=== PATIENT | female | born 1995 | race Caucasian/White ===

== ENCOUNTER 2018-11-03 17:14 | Emergency (ER) | payer MEDICAID ==
[2018-11-03 17:58] LABS: #Lymphocytes 1.2 thou/uL (1.20-3.40); #Monocytes 0.6 thou/uL (0.11-0.59); #Neutrophils 8.9 thou/uL (1.40-6.50); %Basophils 0.2 % (0.0-1.0); %Eosinophils 0.3 % (0.0-10.0); %Lymphocytes 11.4 % (21.0-51.0); %Monocytes 5.1 % (0.0-10.0); %Neutrophils 82.9 % (42.0-75.0); Hemoglobin 13.9 g/dL (12.0-16.0); Mean Corpuscular HGB CONC 34.4 g/dL (32.0-36.0); Mean Corpuscular Hemoglobin 29.4 pg (27.0-31.0); Mean Corpuscular Volume 85.6 fL (78.0-98.0); Platelet Count 342 thou/uL (130-400); RBC Distribution Width 11.3 % (11.5-14.5); Red Blood Cell (RBC) Count 4.73 mill/uL (4.20-5.40); White Blood Cell (WBC) Count 10.7 thou/uL (4.8-10.8)
[2018-11-03 18:20] LABS: ALT (SGPT) 9 U/L (8-55); AST (SGOT) 11 U/L (5-34); Albumin 4.2 g/dL (3.5-5.0); Alkaline Phosphatase 56 U/L (40-150); Anion Gap 11 mmol/L (10-20); BUN (Urea Nitrogen) 4 mg/dL (7.0-18.7); Bilirubin, Total 0.3 mg/dL (0.2-1.2); Calc. Creatinine Clearance 0 mL/min (70-130); Calcium 9.7 mg/dL (7.8-10.44); Carbon Dioxide 23 mmol/L (22-29); Chloride 105 mmol/L (98-107); Estimated GFR-MDRD Greater than 90; Globulin 3.9 g/dL (2.4-3.5); Glucose 96 mg/dL (70-105); Potassium 3.9 mmol/L (3.5-5.1); Protein, Total 8.1 g/dL (6.0-8.3); Sodium 135 mmol/L (136-145)
[2018-11-03 19:37] LABS: Bilirubin Negative (Negative); Blood, Urine Negative (Negative); Clarity CLEAR (Clear); Glucose, Urine (Dipstick) Negative (Negative); Leukocyte Negative (Negative); Nitrite Negative (Negative); Protein, Urine (Dipstick) Negative (Neg-Trace); Specific Gravity, Urine 1.007 (1.002-1.036)
== END 2018-11-03 19:56 | disposition home or self-care (01) ==
LOC: ERS 17:14
DX: O99.89 Other specified diseases and conditions complicating pregnancy, childbirth and the puerperium (principal); R55 Syncope and collapse; O99.341 Other mental disorders complicating pregnancy, first trimester; F31.9 Bipolar disorder, unspecified; Z3A.13 13 weeks gestation of pregnancy
CPT/HCPCS: 36415; 80053; 81003; 84702; 85025; 93005

== ENCOUNTER 2018-11-17 00:52 | Emergency (ER) | payer MEDICAID, OTHER ==
[2018-11-17 01:31] LABS: #Basophils 0.1 thou/uL (0.0-0.2); #Eosinphils 0.1 thou/uL (0.0-0.7); #Lymphocytes 2.5 thou/uL (1.20-3.40); #Monocytes 0.6 thou/uL (0.11-0.59); #Neutrophils 5.6 thou/uL (1.40-6.50); %Basophils 1.1 % (0.0-1.0); %Eosinophils 1.4 % (0.0-10.0); %Lymphocytes 27.9 % (21.0-51.0); %Monocytes 7.1 % (0.0-10.0); %Neutrophils 62.6 % (42.0-75.0); Hemoglobin 13.8 g/dL (12.0-16.0); Mean Corpuscular HGB CONC 34.3 g/dL (32.0-36.0); Mean Corpuscular Volume 87.5 fL (78.0-98.0); Mean Platelet Volume 7.8 fL (7.4-10.4); Platelet Count 328 thou/uL (130-400); RBC Distribution Width 11.3 % (11.5-14.5)
[2018-11-17 01:44] LABS: Anion Gap 12 mmol/L (10-20); BUN (Urea Nitrogen) 4 mg/dL (7.0-18.7); Calc. Creatinine Clearance 0 mL/min (70-130); Calcium 9.6 mg/dL (7.8-10.44); Carbon Dioxide 23 mmol/L (22-29); Chloride 106 mmol/L (98-107); Estimated GFR-MDRD Greater than 90; Glucose 93 mg/dL (70-105); Potassium 3.5 mmol/L (3.5-5.1); Sodium 137 mmol/L (136-145)
[2018-11-17 03:44] LABS: Bilirubin Negative (Negative); Blood, Urine Negative (Negative); Clarity CLOUDY (Clear); Glucose, Urine (Dipstick) Negative (Negative); Leukocyte Negative (Negative); Nitrite Negative (Negative); Protein, Urine (Dipstick) Negative (Neg-Trace); Specific Gravity, Urine 1.011 (1.002-1.036)
--- NOTE | 2018-11-17 08:51 | ULT ---
PRELIMINARY REPORT/[facility]/EMERGENTY AFTER-HOURS PROCEDURE US After First Trimester, Transabdominal EXAM DATE/TIME: 11/17/2018 1:24 AM CLINICAL HISTORY: 23 years old, female; Pain; complicated by abdominal or pelvic pain; Lower; Second trimeste r; Gestational age or lmp: 14w4d; ; Patient HX: Pelvic cramping pain, no bleeding at this luke e TECHNIQUE: Real-time transabdominal obstetrical ultrasound of the maternal pelvis and a second or third trimeste r with image documentation. COMPARISON: No relevant prior studies available. FINDINGS: GESTATION: Gestation: Single live intrauterine gestation. Heart rate: heart rate 147 beats per minute. Presentation: position is transverse with head maternal right. Placenta: Placenta is posterior. Images suggest placenta previa. Amniotic fluid: Amniotic fluid volume is subjectively normal. BIOMETRY: Estimated gestational age: biometry measurements are compatible with estimated gestational age of 14 weeks 6 days. MATERNAL: Uterus: Unremarkable. Cervix: Cervix is closed with length measuring 2.9 cm transabdominally. Right adnexa: Right ovary is normal with normal Doppler signal. Left adnexa: 1.7 cm left ovarian cyst/follicle. Left ovary otherwise normal with normal Doppler signa l. IMPRESSION: 1. Single live intrauterine gestation as above. 2. Placenta is posterior. Images suggest placenta previa. Recommend attention to this area on followu p as progresses. Thank you for allowing us to participate in the care of your patient. Dictated and Authenticated by: London Low MD 11/17/2018 2:17 AM Central Time ([place] & [place]) OBSTETRICAL SONOGRAM: 11/17/2018 0125 HOURS HISTORY: Exam performed on an emergency basis. First trimester gestation. Pelvic pain. FINDINGS: I agree with the preliminary report by from [facility]. Single viable intrauterine gestation. Posterior placenta with placenta previa. Please consider sono graphic followup to evaluate for placental regression from the internal os. Good color and spectral Doppler flow within each ovary. POS: [facility]
== END 2018-11-17 04:04 | disposition home or self-care (01) ==
LOC: ERS 00:52
DX: O99.89 Other specified diseases and conditions complicating pregnancy, childbirth and the puerperium (principal); F31.9 Bipolar disorder, unspecified; Z3A.14 14 weeks gestation of pregnancy
CPT/HCPCS: 36415; 76856; 80048; 81003; 84702; 85025; 86850; 86900; 86901; 93976

== ENCOUNTER 2019-01-18 19:38 | Day surgery (SDC) | payer OTHER ==
[2019-01-18 20:13] VITALS: BP 115/64; TEMP 98.7; BMI 22.8
--- NOTE | 2019-01-18 20:36 | PDOC.LDHP ---
Labor and Delivery H&P Chief complaint: contractions HPI: 23 y/o G1 at 23w3d, patient of Dr. Stevens, presents with ?ctx q 10-15 mins. Rates pain 8/10 but able to converse through them. Denies VB, LOF, or decreased FM. Being treated for BV since yesterday. ROS neg for HEENT, cv, pulm, gi, gu, neuro, psych, skin, musculoskeletal or constitutional symptoms other than mentioned above. OB History Details: First Current complications: none Past Medical History: Anxiety, depression Current medications: pre- vitamins Previous surgical history: none Allergies/Adverse Reactions: Allergies Allergy/AdvReac Type Severity Reaction Status Date / Time No Known Drug Allergies Allergy Verified 01/18/19 20:05 Social history: none - Physical Exam Vital signs reviewed and normal: yes General: NAD, resting Lungs: nonlabored breathing Abdomen: gravid Extremeties: no edema FHT: category 1 (145, mod variability, + accels, no decels) [place] contractions every: q 10 mins initially, spaced out to occasional over an hour - OB Labs Blood type: O RH: positive Additional Labs: FFN negative - Assessment 23 y/o G1 at 23w3d with no e/o PTL. status reassuring, NST AGA. Bedside ultrasound performed by myself and there was no hourglassing of membranes, no dilated noted, but not able to accurately measure cervical length. Formal ultrasound ordered to assess placental location and cervical length - still appears to be low-lying or marginal and length appears adequate with all measurements over 2.5cm. - Plan -: D/c home with precautions. Advised to keep all appointments.
--- NOTE | 2019-01-18 21:44 | ULT ---
ULTRASOUND OB LIMITED 01/18/19 HISTORY: Cervical length and position. COMPARISON: Pelvic ultrasound 11/17/18. FINDINGS: Cervix measures 2.9 cm in length. The tip of the placenta is close to the internal os, approximately 1 cm away. Amniotic fluid is adequate. Placenta is anterior. heart rate documented at 140 beats per minute. position is breech. IMPRESSION: Single live intrauterine with heart rate of 140 beats per minute. Cervix measures approxima tely 2.8 cm and the tip of the anterior placenta is within 1 cm of the internal os. POS: [facility]
[2019-01-18 22:01] LABS: FFN Internal QC Analyzer PASS (PASS); FFN Internal QC Cassette PASS (PASS); Fetal Fibronectin Negative (Negative)
== END 2019-01-18 22:15 | disposition home or self-care (01) ==
LOC: L&D/OP 19:38
PROVIDERS: ATTEND Obstetrics & Gynecology
DX: O47.02 False labor before 37 completed weeks of gestation, second trimester (principal); O32.1XX0 Maternal care for breech presentation, not applicable or unspecified; Z3A.23 23 weeks gestation of pregnancy; Z79.899 Other long term (current) drug therapy
CPT/HCPCS: 76815; 82731; 99283

== ENCOUNTER 2019-02-02 16:51 | Day surgery (SDC) | payer OTHER ==
--- NOTE | 2019-02-02 17:28 | PDOC.FPROB ---
FMR OB H&P: HPI - History of Present Illness Chief Complaint: contractions, decreased movement History of Present Illness: 23 yo G1 @ 25.4wks presents to L&D for contractions and decreased movement. Pt states she has been jose j since 10am this morning every ten minutes regularly and endorses 6 movements of baby today and is worried because the baby usually moves more than that. She denies n/v/d/fever/dysuria/VB/ vaginal discharge/LOF. She has not had sex recently. Primary Care Physician: Hilda FMR OB H&P: Current - Care : 1 Due date: 05/14/19 FMR OB H&P: History - Past Medical History PMH: none - OB History OB History: marginal previa prior work-up for PTL, FFN negative and CL 2.8 - Surgical History Sx History: none - Social History Social History: denies smoking, alcohol, drug use - Family History Family History: mom, grandmother, grandfather-HTN FMR OB H&P: Medications - Current Home Medications: Medication Instructions Recorded Confirmed Type Vit 108/Iron/Folic AC 1 tablet PO DAILY 01/18/19 02/02/19 History [ One Tablet] Allergies/Adverse Reactions: Allergies Allergy/AdvReac Type Severity Reaction Status Date / Time No Known Drug Allergies Allergy Verified 02/02/19 17:39 FMR OB H&P: ROS - Review of Systems General: denies: fever/chills, weight/appetite/sleep changes ENT: denies: nasal congestion, rhinorrhea Cardiovascular: denies: chest pain, palpitation, edema Respiratory: denies: cough, congestion, shortness of breath Gastrointestinal: reports: nausea. denies: abdominal pain, vomiting, diarrhea Genitourinary (Female): reports: contractions. denies: incontinence, dysuria, hematuria, polyuria, vaginal discharge, vaginal bleeding, vaginal pressure Musculoskeletal: denies: pain, tenderness Neurologic: denies: numbness, syncope Integumentary: denies: itching, rash FMR OB H&P: Vital Signs - Maternal Vital signs: Selected Entries 02/02/19 17:33 Temperature 98.6 F Pulse Rate 66 Blood Pressure 106/58 L [Semi-Fowlers] Respiratory 18 Rate - Heart Tones Baseline: 140 Variability: moderate Acceleration: present Deceleration: variable [place] contractions every: irritability FMR OB H&P: Physical Exam - Physical Exam General: NAD, awake, alert and oriented HEENT: normocephalic and atraumatic, PERRLA Heart: RRR, normal S1/S2, no murmurs/rubs/gallops, no edema General: CTAB, no respiratory distress, good air movement Abdomen: soft, gravid, non-tender Skin: no rash, good tugor, capillary refill <2 seconds Psychiatric: intact recent and remote memory, good judgement and insight FMR OB H&P: A/P - Problem List (1) contractions Status: Suspected Code(s): O47.9 - FALSE LABOR, UNSPECIFIED (2) Marginal placenta previa Status: Acute Code(s): O44.20 - PARTIAL PLACENTA PREVIA NOS OR WITHOUT HEMOR, UNSP TRIMESTER Discussion: Date/Time: 02/02/19 1728 23 yo G1 presents with contractions and decreased movement. #Possible Pre-term Contractions #Decreased Movement -Low suspicion for labor -Will monitor mom and baby on the NST and order a FFN to evaluate for PTL, and will order a VP3 to assess for a source of infection/cause of pt's uterine irritability; currently not jose j on the monitor, FHTs 140s, moderate variability, accels with variable decels -recent workup for PTL last week, reassuring, with FFN negative and cervical length 2.8cm; of note marginal previa noted -If FFN negative, will dc pt. #Marginal Previa- -seen via US in clinic and during prior work-up -pt aware -precautions given This H&P was discussed with Dr. Wagner who agree with the above documentation and plan. Addendum - Attending - Attending Attestation Date/Time: 02/02/19 3612 I personally evaluated the patient and discussed the management with Dr. Ruggiero. I agree with the History, Examination, Assessment and Plan documented above. FFN negative, no ctx. D/c home.
[2019-02-02 17:39] VITALS: BP 106/58; TEMP 98.6; BMI 22.8
[2019-02-02 18:59] LABS: FFN Internal QC Analyzer PASS (PASS); FFN Internal QC Cassette PASS (PASS); Fetal Fibronectin Negative (Negative)
[2019-02-03] MEDS ORDERED: Prenatal Vitamin 1 TAB PO SCH (09:00)
== END 2019-02-02 19:36 | disposition home or self-care (01) ==
LOC: L&D/OP 16:51
PROVIDERS: ATTEND Obstetrics & Gynecology
DX: O47.02 False labor before 37 completed weeks of gestation, second trimester (principal); O36.8120 Decreased fetal movements, second trimester, not applicable or unspecified; O44.22 Partial placenta previa NOS or without hemorrhage, second trimester; Z3A.25 25 weeks gestation of pregnancy; Z79.899 Other long term (current) drug therapy
CPT/HCPCS: 36415; 82731; 87480; 87510; 87660; 99285

== ENCOUNTER → 2019-02-15 | Day surgery (SDC) | payer OTHER ==
[2019-02-15 21:53] VITALS: BP 102/57; TEMP 98.6; BMI 24.0
--- NOTE | 2019-02-15 22:29 | PDOC.LDHP ---
Labor and Delivery H&P Chief complaint: other (bleeding) HPI: 23 y/o G1 at 27w3d, patient of Dr. Stevens presents with bleeding noted while in the bath tub this evening. When she got out, there was bleeding when she wiped and a small amount on her pantyliner at her arrival. Denies LOF, ctx, or decreased FM. Has had some intermittent low back pain but no dysuria, frequency or urgency. No hx hemorrhoids. ROS neg for HEENT, cv, pulm, gi, gu, neuro, psych, skin, musculoskeletal or constitutional symptoms other than mentioned above. OB History Details: First Current complications: other (marginal previa) Past Medical History: None Current medications: pre- vitamins Previous surgical history: none Allergies/Adverse Reactions: Allergies Allergy/AdvReac Type Severity Reaction Status Date / Time No Known Drug Allergies Allergy Verified 02/15/19 21:49 Social history: none - Physical Exam Vital signs reviewed and normal: yes General: NAD, resting Lungs: nonlabored breathing Abdomen: gravid Extremeties: no edema FHT: category 1 (130s, mod variability, + accels, no decels) [place] contractions every: None - Vaginal Exam cm dilated: 0 (SSE with no blood in vagina) - Assessment 23 y/o G1 at 27w3d with no e/o vaginal bleeding. status reassuring with reactive NST. - Plan -: Will get UA and call if results indicate treatment. D/c home with precautions. Has next appointment with Dr. Stevens on Tuesday.
[2019-02-15 23:08] LABS: Bilirubin Negative (Negative); Blood, Urine Negative (Negative); Clarity CLEAR (Clear); Glucose, Urine (Dipstick) Negative (Negative); Leukocyte Trace (Negative); Nitrite Negative (Negative); Protein, Urine (Dipstick) Negative (Neg-Trace); Urobilinogen 0.2 mg/dL (0.2-1.0); pH, Urine 6.5 (5.0-9.0)
[2019-02-15 23:10] LABS: Bacteria/HPF None Seen HPF (None Seen); Hyaline Casts/LPF 0-3 HYALINE CAST LPF (0-3 Hyaline); RBC/HPF 0-3 HPF (0-3); Squamous Epithelial 0-3 HPF (0-3); WBC/HPF 0-3 HPF (0-3)
[2019-02-15 23:12] LABS: Specific Gravity, Urine 1.004 (1.002-1.036)
== END ==
LOC: L&D/OP 21:27
PROVIDERS: ATTEND Obstetrics & Gynecology
DX: O44.32 Partial placenta previa with hemorrhage, second trimester (principal); Z3A.27 27 weeks gestation of pregnancy; Z79.899 Other long term (current) drug therapy
CPT/HCPCS: 81001; 99283

== ENCOUNTER 2019-03-01 16:28 | Day surgery (SDC) | payer OTHER ==
[2019-03-01 18:14] LABS: Bilirubin Negative (Negative); Blood, Urine Negative (Negative); Clarity CLEAR (Clear); Glucose, Urine (Dipstick) Negative (Negative); Leukocyte Negative (Negative); Nitrite Negative (Negative); Protein, Urine (Dipstick) Negative (Neg-Trace); Specific Gravity, Urine 1.004 (1.002-1.036); Urobilinogen 0.2 mg/dL (0.2-1.0)
[2019-03-01 18:17] LABS: Amnisure Internal Control QC ACCEPTABLE (ACCEPTABLE); Amnisure Test No Membranes Rupture (No Rupture)
[2019-03-01 18:26] VITALS: BMI 23.8
--- NOTE | 2019-03-01 20:30 | ULT ---
ULTRASOUND OBSTETRICAL COMPLETE: DATE: 03/01/2019 HISTORY: female. Evaluate presentation, SANTIAGO, cervical length, and weight FINDINGS: number: rosen lie: Cephalic Maternal cervix: Difficult to visualize and difficult to measure. Probably closed. Plant Reliability Engineer has me asured this as approximately 3 cm, but this is uncertain. Placenta: Anterior. No placenta previa. Distal tip of placenta 3 cm from internal cervical os region. Amniotic fluid volume: SANTIAGO = 16.5cm heart rate: 141 bpm anatomy not evaluated biometry: Biparietal diameter (BPD): 7.2 cm 29 w 0 d Head circumference (HC): 26.7 cm 29 w 1 d Abdominal circumference (AC): 24.9 cm 29 w 1 d Femur length (FL): 5.6 cm 29 w 2 d Average ultrasound age (AUA): 29 w 1 d Estimated date of delivery (TANNA): 05/16/2019 Estimated weight (EFW): 1342 g +/- 199 g IMPRESSION: 1) Live 3rd trimester intrauterine gestation. 2) Estimated gestational age of 29 weeks, 1 days 3) Vertex lie. 4) SANTIAGO 16.5 cm 5) cervix difficult to visualize. Probably closed. Possibly 3 cm in length.
--- NOTE | 2019-03-02 02:26 | SS ---
DATE OF ADMISSION: 03/01/2019 DATE OF DISCHARGE: 03/01/2019 REGULAR PHYSICIAN: Tomás Stevens MD. EVALUATING PHYSICIAN: Seth Ge MD. CHIEF COMPLAINT: Leakage of fluid. HISTORY OF PRESENT ILLNESS: Ms. Telles is a 23-year-old white G1, P0, with an estimated date of confinement of 05/14/2019, who presents complaining of suspected leakage of fluid since 2 p.m. today. She denies contractions or vaginal bleeding. Her care has been with Dr. Stevens and she reports no complications. PAST MEDICAL HISTORY: Anxiety and occasional gastric reflux. PAST SURGICAL HISTORY: None. CURRENT MEDICATIONS: vitamins. ALLERGIES: NO KNOWN ALLERGIES. SOCIAL HISTORY: Denies tobacco, alcohol, or drug use. FAMILY HISTORY: Unremarkable. REVIEW OF SYSTEMS: She denies nausea, vomiting, fever, chills, vaginal bleeding, contractions, or decreased movement. PHYSICAL EXAMINATION: VITAL SIGNS: Stable and she is afebrile. GENERAL: She is in no acute distress. ABDOMEN: Soft, nontender, and gravid. PELVIC: Deferred. heart rate tracing is stable. Initially irritability seen, but with oral hydration, this has gone away. LABORATORY DATA: AmniSure comes back with no evidence of membrane rupture. Urinalysis returns clear with a specific gravity of 1.004 with negative protein, negative glucose, negative ketones, negative nitrites, and negative leukocyte esterase. Due to her history, an ultrasound was ordered. This returned showing vertex fetus consistent with known dates. SANTIAGO is 16.4 cm and the cervical length is 2.9. ASSESSMENT: 1. A 29 and 3/7 week intrauterine . 2. No evidence of ruptured membranes or labor. PLAN: The patient will be dismissed to home. She was given complete precautions. I have notified Dr. Stevens and he agrees with the plan. Job ID: [id number]
== END 2019-03-01 20:40 | disposition home or self-care (01) ==
LOC: L&D/OP 16:28
PROVIDERS: ATTEND Obstetrics & Gynecology
DX: O99.89 Other specified diseases and conditions complicating pregnancy, childbirth and the puerperium (principal); N89.8 Other specified noninflammatory disorders of vagina; K21.9 Gastro-esophageal reflux disease without esophagitis; O99.343 Other mental disorders complicating pregnancy, third trimester; F41.9 Anxiety disorder, unspecified; Z3A.29 29 weeks gestation of pregnancy; Z79.899 Other long term (current) drug therapy
CPT/HCPCS: 76805; 81003; 84112; 99283

== ENCOUNTER 2019-03-26 16:37 | Day surgery (SDC) | payer OTHER ==
[2019-03-26 17:15] VITALS: BP 98/55; TEMP 99.1; BMI 24.0
--- NOTE | 2019-03-26 17:48 | PDOC.LDHP ---
Labor and Delivery H&P Chief complaint: decreased movement HPI: 23 y/o G1 at 33w0d, patient of Dr. Stevens, presents with decreased movement today. Had one episode of spotting that has resolved and occasional cramping. Denies VB, LOF, regular ctx or other concerns. ROS neg for HEENT, cv, pulm, gi, gu, neuro, psych, skin, musculoskeletal or constitutional symptoms other than mentioned above. OB History Details: First Current complications: none Past Medical History: Anxiety Reflux Current medications: none Previous surgical history: none Allergies/Adverse Reactions: Allergies Allergy/AdvReac Type Severity Reaction Status Date / Time No Known Drug Allergies Allergy Mild Verified 03/26/19 17:15 Social history: none - Physical Exam Vital signs reviewed and normal: yes General: NAD, resting Lungs: nonlabored breathing Abdomen: gravid Extremeties: no edema FHT: category 1 (130s, mod variability, + accels, no decels) [place] contractions every: rare - Assessment 23 y/o G1 at 33w0d with reassuring status. Reactive NST. - Plan -: D/c home with precautions. Advised to keep all appointments.
== END 2019-03-26 18:00 | disposition home or self-care (01) ==
LOC: L&D/OP 16:37
PROVIDERS: ATTEND Obstetrics & Gynecology
DX: O36.8130 Decreased fetal movements, third trimester, not applicable or unspecified (principal); O99.89 Other specified diseases and conditions complicating pregnancy, childbirth and the puerperium; R10.9 Unspecified abdominal pain; O99.343 Other mental disorders complicating pregnancy, third trimester; F41.9 Anxiety disorder, unspecified; O99.613 Diseases of the digestive system complicating pregnancy, third trimester; K21.9 Gastro-esophageal reflux disease without esophagitis; Z3A.33 33 weeks gestation of pregnancy; Z79.899 Other long term (current) drug therapy
CPT/HCPCS: 59025; 99282

== ENCOUNTER 2019-04-01 13:44 | Day surgery (SDC) | payer OTHER ==
[2019-04-01 14:14] VITALS: BP 110/58; TEMP 99.2
[2019-04-01 14:15] VITALS: BMI 24.0
--- NOTE | 2019-04-01 14:40 | PDOC.LDHP ---
Labor and Delivery H&P Allergies/Adverse Reactions: Allergies Allergy/AdvReac Type Severity Reaction Status Date / Time No Known Drug Allergies Allergy Mild Verified 03/26/19 17:15 - Plan -: PCP: Hilda HPI: This is a 23 yo at 33.6 wks by presenting for abdominal cramping. She states it has been going on for 1 day and describes it as a constant pressure. She denies anything making it better or worse, states not worse with movement. She denies N/V/D, fevers, chills, burning/blood in the urine. States she has a yellow discharge. She just finished treatment with tinidazole 3 days ago for BV. She states she noted some light vaginal spotting when she wiped yesterday. She affirms movement, denies cxns, denies ROM. Denies ROBLES, visual changes, SOB, or swelling. History: OB hx: G1 PMH: depression/anxiety PSH: neg Meds: PNV All: NKDA Soc Hx: denies smoking, alcohol, drugs Fam Hx: denies downs, congenital defects REVIEW OF SYSTEMS: Gen: no fever, chills, or sweats Neuro: no numbness/tingling, no weakness, denies headache Eyes: no visual changes ENT: no hearing changes, no sore throat, no runny nose Resp: no cough, no SOB, no wheeze Card: denies chest pain, no palpitations GI: no N/V/D, no abdominal pain : no dysuria, no hematuria MSK: no myalgias, no joint pain/stiffness Heme: no easy bruising/bleeding Skin: no rash, no erythema PHYSICAL EXAMINATION: General: NAD, alert and oriented x3 HEENT: PERRLA, EOMI, normal sclera, oropharynx without erythema or exudate Neck: Supple. Full ROM. Heart/Cardiovascular System: RRR, Cap refill < 3 seconds, no rub, no murmur Lungs/Respiratory System: clear to auscultation bilaterally. No increased work of breathing. Room air. Abdomen/Gastro-Intestinal System: no abdominal tenderness, normal bowel sounds, Gravid Extremities: Warm extremities. No cyanosis or edema. Neuro: No gross deficits appreciated. CN 2-12 grossly intact Psychiatry: Awake, Alert and cooperative with exam Skin: No lesions, rashes, or ulcers Musculoskeletal: Full ROM A/P: This is a 23 yo at 33.6 wks by presenting for abdominal cramping # Cramping - just finished tinidazole 3 days ago, she has been treated for BV x3 this - Exam is benign - states cramping is like she has had in the past - provided extensive reassurance and education on signs of labor - discussed lifestyle modifications for treating BV at length including probiotics for women's health - /th/high on ALIVIAE Addendum - Attending - Attending Attestation Date/Time: 04/01/19 1501 I personally evaluated the patient and discussed the management with Dr. Amador I agree with the History, Examination, Assessment and Plan documented above with any addition or exceptions noted below. I spent about 30min reviewing her past visits here and talking with Ms Telles. She has been experiencing cramping on and off for weeks now. It came back yesterday and is described as constant, always present. She does not believe she is having contractions. She has shared she has been on bed rest and that she has been having a recurrent vaginal infection BV and just finished another round of antibiotics Thr. In our discussion Ms Telles shared that she is worried that what she is feeling is not normal. She also is worried that she will miss something that can hurt the baby. Given that she just finished her antibiotics 2-3 days ago I have opted not to retest her today for BV believing that her primary OB will probably retest in the near future for test of cure or , if recurrent- for sensitivities if that is available. Baby is reactive and reassuring. Cervix is closed thick and firm. Pts has not been taking any medication at home to help with her discomforts. I have recommended scheduled tylenol 1gm three times a day for at least a couple days to see if this regimen will work to her satisfaction. I also spoke by phone with her mother, who was very concerned we had not tested her for BV. She also indicated that she was of the belief that I said something to degrade or contradict her daughters doctor. I reassured her that I did not. That I believe is an excellent doctor and that I am confident he has a plan of care in place to deal with this stubborn infection. I explained to her my reasoning for not retesting so close to finishing her antibiotics. I shared the things I explained to her daughter and the reassurance I have attempted to give. I explained to my ability what labor contraction pattern is like including drawing it on the board. I explained labor precautions. I also recommended a probiotic to support vaginal health with >50billion cfu and gave a brand available at the local [facility] hospital. after explaining in detail the encounter and what I shared with her daughter, she expressed understanding and the tone of the conversation became a very positive one. This has been a hard and the level of worry has been very high. I shared the pt is almost 34wks which should be comforting as she is coming to the end of the . The patient has been complying with strict bed rest. I have asked her to see if Dr Stevens, or the provider she sees next week, is comfortable with her returning to a more normal daily routine given her gestational age.
== END 2019-04-01 15:45 | disposition home or self-care (01) ==
LOC: L&D/OP 13:44
PROVIDERS: ATTEND Obstetrics & Gynecology
DX: O26.893 Other specified pregnancy related conditions, third trimester (principal); R10.9 Unspecified abdominal pain; O99.343 Other mental disorders complicating pregnancy, third trimester; F32.9 Major depressive disorder, single episode, unspecified; F41.9 Anxiety disorder, unspecified; Z3A.33 33 weeks gestation of pregnancy
CPT/HCPCS: 99282

== ENCOUNTER 2019-04-27 21:50 | Day surgery (SDC) | payer OTHER ==
[2019-04-27 22:20] VITALS: BP 125/58; TEMP 98.9; BMI 26.0
--- NOTE | 2019-04-27 22:44 | PDOC.LDHP ---
Labor and Delivery H&P Chief complaint: contractions HPI: 23 y/o G1 at 37w4d, patient of Dr. Stevens, presents with ctx q 3-5 mins today. Denies VB, LOF, or decreased FM. ROS neg for HEENT, cv, pulm, gi, gu, neuro, psych, skin, musculoskeletal or constitutional symptoms other than mentioned above. OB History Details: First Current complications: none Past Medical History: Anxiety/Depression Current medications: pre-teresa vitamins Previous surgical history: none Allergies/Adverse Reactions: Allergies Allergy/AdvReac Type Severity Reaction Status Date / Time No Known Drug Allergies Allergy Mild Verified 03/26/19 17:15 Social history: none - Physical Exam Vital signs reviewed and normal: yes General: NAD, resting Lungs: nonlabored breathing Abdomen: gravid Extremeties: no edema FHT: category 1 (135, mod variability, + accels, no decels) [place] contractions every: occasional - Vaginal Exam cm dilated: 0 (0.5cm) Effacement: 0% Station: -3 - Assessment 23 y/o G1 at 37w3d with no e/o active labor. status reassuring with reactive NST. - Plan -: D/c home with precautions. Advised to keep all appointments.
== END 2019-04-27 22:47 | disposition home or self-care (01) ==
LOC: L&D/OP 21:50
PROVIDERS: ATTEND Obstetrics & Gynecology
DX: O47.1 False labor at or after 37 completed weeks of gestation (principal); O99.343 Other mental disorders complicating pregnancy, third trimester; F41.9 Anxiety disorder, unspecified; F32.9 Major depressive disorder, single episode, unspecified; Z3A.37 37 weeks gestation of pregnancy
CPT/HCPCS: 99282

== ENCOUNTER 2019-05-12 19:58 | Day surgery (SDC) | payer OTHER ==
[2019-05-12 20:46] LABS: #Basophils 0.1 thou/uL (0.0-0.2); #Eosinphils 0.1 thou/uL (0.0-0.7); #Neutrophils 9.5 thou/uL (1.40-6.50); %Basophils 0.4 % (0.0-1.0); %Eosinophils 0.6 % (0.0-10.0); %Monocytes 7.4 % (0.0-10.0); %Neutrophils 69.5 % (42.0-75.0); Hemoglobin 10.1 g/dL (12.0-16.0); Mean Corpuscular HGB CONC 31.9 g/dL (32.0-36.0); Mean Corpuscular Hemoglobin 26.1 pg (27.0-31.0); Mean Corpuscular Volume 81.6 fL (78.0-98.0); Mean Platelet Volume 7.8 fL (7.4-10.4); Platelet Count 409 thou/uL (130-400); RBC Distribution Width 12.6 % (11.5-14.5); Red Blood Cell (RBC) Count 3.88 mill/uL (4.20-5.40); White Blood Cell (WBC) Count 13.7 thou/uL (4.8-10.8)
[2019-05-12 20:48] VITALS: BMI 24.5
[2019-05-12 20:55] VITALS: BP 114/71; TEMP 98.5
--- NOTE | 2019-05-12 21:06 | PDOC.FPROB ---
FMR OB H&P: HPI - History of Present Illness Chief Complaint: Fever History of Present Illness: 23 yo @ 39.5 weeks comes in w/ c/c of fever. Says started at 1600. Recorded fever of 100.7. Says she took a tylenol around 7. Reports having nausea and some dizziness. Denies any vomiting. States she hasn't eaten thing since lunch. Denies any cough, nasal congestion. Denies any ear pain. Denies any chest pain or SOB. Denies any urinary symptoms or burning with urination. Denies any vaginal discharge, itching, irritation or bleeding. Denies any abdominal pain. Denies any diarrhea or constipation. Denies any swelling. 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 FMR OB H&P: Medications - Current Home Medications: Medication Instructions Recorded Confirmed Type PNV No.118/Iron Fumarate/FA 1 tablet PO DAILY 03/26/19 05/12/19 History [ 19 Chewable Tablet] Acetaminophen [Tylenol Extra 1,000 mg PO PRN PRN 05/12/19 05/12/19 History Strength] Cephalexin [Keflex] 500 mg PO Q12H #14 cap 05/12/19 Rx L.acidoph,Paracasei, B.lactis 1 each PO DAILY 05/12/19 05/12/19 History [Probiotic] Ondansetron HCl [Zofran] 4 mg PO Q4HR PRN #10 tab 05/12/19 Rx Allergies/Adverse Reactions: Allergies Allergy/AdvReac Type Severity Reaction Status Date / Time No Known Drug Allergies Allergy Mild Verified 05/12/19 20:31 FMR OB H&P: ROS - Review of Systems General: reports: fever/chills, weight/appetite/sleep changes ENT: denies: nasal congestion, rhinorrhea, sinus pain/pressure, ear pain, ringing in ears, sore throat, pain with swallowing Respiratory: denies: cough, congestion, shortness of breath Gastrointestinal: reports: nausea. denies: abdominal pain, vomiting, diarrhea, constipation Genitourinary (Female): denies: incontinence, dysuria, hematuria, vaginal discharge, vaginal pain, vaginal bleeding, contractions Neurologic: reports: headache. denies: weakness Integumentary: denies: itching Psychological: reports: depression, anxiety FMR OB H&P: Vital Signs - Maternal Vital signs: Vital Signs - First Documented Temp Pulse Resp BP Pulse Ox 98.5 F 96 18 114/71 99 05/12/19 20:30 05/12/19 20:30 05/12/19 20:30 05/12/19 20:30 05/12/19 20:30 - Heart Tones Baseline: 135 Variability: moderate Acceleration: present Deceleration: absent Category: category 1 [place] contractions every: Non visualize FMR OB H&P: Physical Exam - Physical Exam General: NAD, awake, alert and oriented HEENT: normocephalic and atraumatic Neck: supple, trachea midline, no LAD Heart: RRR, normal S1/S2, no murmurs/rubs/gallops, pulses present, no edema General: CTAB, no respiratory distress, good air movement, no rales/rhonchi, no wheezing Abdomen: soft, gravid, non-tender, no masses Deviation from normal: No CVA tenderness noted Musculoskeletal: normal gait and station, FROM in all four extremities Neurological: no focal deficit Skin: no rash, capillary refill <2 seconds Psychiatric: good judgement and insight FMR OB H&P: Results - Labs Lab results: Laboratory Results - last 24 hr 05/12/19 20:35 WBC 13.7 H RBC 3.88 L Hgb 10.1 L Hct 31.6 L MCV 81.6 MCH 26.1 L MCHC 31.9 L RDW 12.6 Plt Count 409 H MPV 7.8 Neutrophils % 69.5 Lymphocytes % 22.0 Monocytes % 7.4 Eosinophils % 0.6 Basophils % 0.4 Neutrophils # 9.5 H Lymphocytes # 3.0 Monocytes # 1.0 H Eosinophils # 0.1 Basophils # 0.1 FMR OB H&P: A/P - Problem List (1) Term Status: Acute Code(s): Z34.90 - ENCNTR FOR SUPRVSN OF NORMAL , UNSP, UNSP TRIMESTER (2) Fever Status: Acute Code(s): R50.9 - FEVER, UNSPECIFIED Disposition: CBC shows mild elevation of WBC at 13. Pt has no recorded fever at this time. U/A is dirty catch. Color was turbid and has WBC and +1 bacteria. Will give fluid bolus, zofran and famotidine for nausea pain. Pt has history of GERD. Discussion: Date/Time: 05/12/192102 UTI vs Gastroenteritis -UA shows some signs of possible UTI. Px keflex 500 mg BID. Will f/u with OB on Tuesday. -Also px zofran and advised to increase fluids. Take tylenol prn as needed for fever. Addendum - Attending - Attending Attestation Date/Time: 05/13/19 0425 I personally evaluated the patient and discussed the management with Dr. Cox. I agree with the History, Examination, Assessment and Plan documented above.
[2019-05-12] MEDS ORDERED: Lactated Ringer's 1,000 ML IV SCH (21:15)
[2019-05-12] MEDS ORDERED: Ondansetron PF 4 MG/2 ML Vial IVP SCH (21:15)
[2019-05-12 21:24] LABS: Bilirubin Negative (Negative); Blood, Urine Negative (Negative); Clarity Turbid (Clear); Glucose, Urine (Dipstick) Normal (Negative); Leukocyte 75 Leu/uL (Negative); Nitrite Negative (Negative); Protein, Urine (Dipstick) Negative (Neg-Trace); RBC/HPF 0-3 HPF (0-3); Urobilinogen Normal mg/dL (Less than 2)
[2019-05-12 21:25] LABS: Bacteria/HPF 1+ HPF (None Seen)
[2019-05-12 21:27] LABS: Urine Culture Reflex No No
[2019-05-12] MEDS ORDERED: Famotidine/PF 20 mg/2ml Vial SLOW IVP SCH (22:30)
== END 2019-05-12 22:41 | disposition home or self-care (01) ==
LOC: L&D/OP 19:58
PROVIDERS: ATTEND Obstetrics & Gynecology
DX: O99.89 Other specified diseases and conditions complicating pregnancy, childbirth and the puerperium (principal); R50.9 Fever, unspecified; O99.343 Other mental disorders complicating pregnancy, third trimester; F32.9 Major depressive disorder, single episode, unspecified; F41.9 Anxiety disorder, unspecified; O99.613 Diseases of the digestive system complicating pregnancy, third trimester; K21.9 Gastro-esophageal reflux disease without esophagitis; Z3A.39 39 weeks gestation of pregnancy
CPT/HCPCS: 36415; 81001; 85025; 87086; 96360; 96361; 96375; 99283; J2405; S0028

== ENCOUNTER 2019-05-14 18:00 | Inpatient (IN) | payer OTHER ==
[~2019-05-14 18:00] MED LIST: Bupivacaine/Epinephrine 0.5% 10 ML VIAL ONE; Lidocaine 2% MPF 10 ML AMP (For Epidural Use) ONE
[2019-05-14 18:28] VITALS: BMI 26.4
[2019-05-14] MEDS ORDERED: Zolpidem Tartrate 5 MG TAB PO PRN (19:00)
[2019-05-14] MEDS ORDERED: Lidocaine 1% (PF) 30 ML VIAL SC PRN (19:00)
[2019-05-14] MEDS ORDERED: Misoprostol 200 MCG TAB PR PRN (19:00)
[2019-05-14] MEDS ORDERED: Diphenoxylate HCl/Atropine Tablet PO PRN ×2 (19:00)
[2019-05-14] MEDS ORDERED: Butorphanol Tartrate 1 MG/ML VIAL SLOW IVP PRN (19:00)
[2019-05-14] MEDS ORDERED: Ibuprofen 800 MG TAB PO PRN (19:00)
[2019-05-14] MEDS ORDERED: HYDROcodone/Acetaminophen 5/325 mg Tablet PO PRN ×2 (19:00)
[2019-05-14] MEDS ORDERED: Promethazine HCl 25 MG/ML VIAL IM PRN (19:00)
[2019-05-14] MEDS ORDERED: NS w/ Oxytocin 10 units 500 ML IV SCH (19:00)
[2019-05-14] MEDS ORDERED: NS / Oxytocin 40 units/1000ml 1,000 ML IV PRN (19:00)
[2019-05-14] MEDS ORDERED: Docusate 100 MG CAP PO PRN (19:00)
[2019-05-14] MEDS ORDERED: Acetaminophen 500 MG TAB PO PRN (19:00)
[2019-05-14] MEDS ORDERED: hydrALAZINE 20 MG/ML VIAL SLOW IVP PRN (19:00)
[2019-05-14 19:17] LABS: Hemoglobin 9.4 g/dL (12.0-16.0); Mean Corpuscular HGB CONC 32.6 g/dL (32.0-36.0); Mean Corpuscular Hemoglobin 26.2 pg (27.0-31.0); Mean Corpuscular Volume 80.3 fL (78.0-98.0); Mean Platelet Volume 7.8 fL (7.4-10.4); Platelet Count 389 thou/uL (130-400); RBC Distribution Width 12.7 % (11.5-14.5); Red Blood Cell (RBC) Count 3.61 mill/uL (4.20-5.40)
[2019-05-14] MEDS: Penicillin G Potassium 5 MILL.UNITS in Sodium Chloride 0.9% 100 ML IVPB SCH (19:37)
[2019-05-14] MEDS: Lactated Ringer's 1,000 ML IV SCH (19:38)
[2019-05-14 19:52] LABS: Syphilis Antibody Nonreactive (Nonreactive); Syphilis Antibody Index 0.04 S/CO (<1.00 Non-Reactive)
[2019-05-14 19:53] LABS: HBSAg Index 0.29 S/CO (0-0.99); Hep B Surf Ag Non-Reactive S/CO (NonReactive)
[2019-05-14] MEDS: Misoprostol 100 MCG TAB VAG SCH ×2 (20:00→23:57)
[2019-05-15] MEDS: Lactated Ringer's 1,000 ML IV SCH ×3 (03:25→17:12)
[2019-05-15] MEDS ORDERED: Sodium Chloride 0.9% 100 ML ONE (07:23)
[2019-05-15] MEDS ORDERED: Penicillin G Potassium 5 MILL.UNITS VIAL ONE (07:23)
[2019-05-15] MEDS: Penicillin G Potassium 5 MILL.UNITS in Sodium Chloride 0.9% 100 ML IVPB SCH (07:26)
[2019-05-15] MEDS: NS w/ Oxytocin 10 units 500 ML IV SCH ×2 (07:26→19:53)
[2019-05-15] MEDS: Misoprostol 100 MCG TAB VAG SCH ×3 (11:22→19:42)
[2019-05-15] MEDS: Penicillin G 2.5 MILL.units 2.5 MILL.UNITS in Premix Bag 1 BAG IVPB SCH ×6 (11:22→19:41)
[2019-05-15] MEDS ORDERED: Fentanyl 4 mcg/Bup 0.1% Cadd 100 ML ONE ×2 (12:50→20:19)
[2019-05-15] MEDS ORDERED: Acetaminophen 325 MG TAB PO PRN (13:49)
[2019-05-15] MEDS ORDERED: ePHEDrine/0.9% NaCl/PF SYRINGE 50 mg/10 ml SLOW IVP PRN (13:49)
[2019-05-15] MEDS ORDERED: Lactated Ringer's 500 ML IV PRN (13:49)
[2019-05-15] MEDS ORDERED: Ondansetron PF 4 MG/2 ML Vial IVP PRN (13:49)
[2019-05-15] MEDS ORDERED: Promethazine HCl 25 MG/ML VIAL IM PRN (13:49)
[2019-05-15] MEDS ORDERED: diphenhydrAMINE 50 MG/ML VIAL IVP PRN (13:49)
[2019-05-15] MEDS ORDERED: Naloxone HCl 0.4 mg/ml Vial IVP PRN ×2 (13:49)
[2019-05-15] MEDS ORDERED: Communication Order-Pharmacy FS SCH (14:00)
[2019-05-15] MEDS: Ondansetron PF 4 MG/2 ML Vial IVP PRN (15:14)
[2019-05-15] MEDS ORDERED: Bicitra 30 ML UDCUP ONE (16:50)
[2019-05-15] MEDS ORDERED: CEFAZOLIN 2 GM in Premix Bag 1 BAG IVPB SCH (17:00)
[2019-05-15] MEDS: Fentanyl 4 mcg/Bupivacaine 0.1% Cassette 100 ML EPIDURAL SCH (20:22)
[2019-05-15] MEDS: Dextrose 5%-Lactated Ringers 1,000 ML IV SCH (22:41)
[2019-05-16] MEDS: Penicillin G 2.5 MILL.units 2.5 MILL.UNITS in Premix Bag 1 BAG IVPB SCH ×2 (01:42→08:09)
[2019-05-16] MEDS ORDERED: Fentanyl 4 mcg/Bup 0.1% Cadd 100 ML ONE (03:31)
[2019-05-16] MEDS: Fentanyl 4 mcg/Bupivacaine 0.1% Cassette 100 ML EPIDURAL SCH (03:33)
[2019-05-16] MEDS: Ondansetron PF 4 MG/2 ML Vial IVP PRN (03:40)
[2019-05-16] MEDS ORDERED: Lidocaine 1% (PF) 30 ML VIAL ONE (06:12)
[2019-05-16] MEDS ORDERED: Misoprostol 200 MCG TAB ONE (06:59)
[2019-05-16] MEDS: NS / Oxytocin 40 units/1000ml 1,000 ML IV SCH ×3 (07:00→13:47)
[2019-05-16] MEDS ORDERED: Misoprostol 200 MCG TAB VAG PRN (07:27)
[2019-05-16] MEDS ORDERED: diphenhydrAMINE 25 MG CAP PO PRN ×2 (07:27→13:48)
[2019-05-16] MEDS ORDERED: Adacel (T-DAP) 0.5 ML SYRINGE IM ONE (07:27)
[2019-05-16] MEDS ORDERED: Ondansetron PF 4 MG/2 ML Vial IVP PRN ×2 (07:27→13:48)
[2019-05-16] MEDS ORDERED: Lanolin Ointment 7 GM TUBE TOP PRN ×2 (07:27→13:48)
[2019-05-16] MEDS ORDERED: Acetaminophen/Codeine 30-300mg Tablet PO PRN ×4 (07:27→13:48)
[2019-05-16] MEDS ORDERED: Bisacodyl 10 MG SUPP PR PRN ×2 (07:27→13:48)
[2019-05-16] MEDS ORDERED: Zolpidem Tartrate 5 MG TAB PO PRN ×2 (07:27→13:48)
[2019-05-16] MEDS ORDERED: hydrALAZINE 20 MG/ML VIAL SLOW IVP PRN ×2 (07:27→13:48)
[2019-05-16] MEDS ORDERED: Milk Of Magnesia 30 ML UDCUP PO PRN ×2 (07:27→13:48)
[2019-05-16] MEDS ORDERED: Preparation H Ointment 28 GM TUBE PR PRN ×2 (07:27→13:48)
[2019-05-16] MEDS ORDERED: Benzocaine-Menthol 82.5 ML CAN TOP PRN ×2 (07:27→13:48)
[2019-05-16] MEDS ORDERED: Ampicillin/Sulbactam 3 GM in Sodium Chloride 0.9% 100 ML IVPB SCH ×2 (07:30→16:45)
[2019-05-16] MEDS ORDERED: Ferrous Sulfate 325 MG TAB PO SCH (08:00)
[2019-05-16] MEDS: Lactated Ringer's 1,000 ML IV SCH (08:09)
[2019-05-16] MEDS: Dextrose 5%-Lactated Ringers 1,000 ML IV SCH (08:11)
[2019-05-16] MEDS: Misoprostol 200 MCG TAB PO SCH ×2 (08:14→09:04)
[2019-05-16] MEDS: Ampicillin/Sulbactam 3 GM in Sodium Chloride 0.9% 100 ML IVPB SCH ×3 (08:20→20:32)
[2019-05-16] MEDS: Misoprostol 100 MCG TAB VAG SCH ×2 (08:27→08:28)
[2019-05-16 08:56] LABS: Hemoglobin 7.4 g/dL (12.0-16.0); Mean Corpuscular HGB CONC 31.1 g/dL (32.0-36.0); Mean Corpuscular Hemoglobin 25.7 pg (27.0-31.0); Mean Corpuscular Volume 82.5 fL (78.0-98.0); Mean Platelet Volume 7.7 fL (7.4-10.4); Platelet Count 339 thou/uL (130-400); RBC Distribution Width 12.8 % (11.5-14.5); Red Blood Cell (RBC) Count 2.86 mill/uL (4.20-5.40); White Blood Cell (WBC) Count 40.4 thou/uL (4.8-10.8)
[2019-05-16] MEDS ORDERED: Docusate Calcium (SURFAK) 240 MG CAP PO SCH (09:00)
[2019-05-16] MEDS ORDERED: Prenatal Vitamin 1 TAB PO SCH (09:00)
[2019-05-16] MEDS ORDERED: Sodium Chloride 0.9% 1,000 ML IV SCH ×3 (13:30→13:45)
[2019-05-16] MEDS ORDERED: NS / Oxytocin 40 units/1000ml 1,000 ML IV SCH (14:00)
[2019-05-16] MEDS ORDERED: Ibuprofen 800 MG TAB PO SCH (14:00)
[2019-05-16] MEDS: Ibuprofen 800 MG TAB PO SCH ×2 (18:06→20:31)
[2019-05-16] MEDS: Ferrous Sulfate 325 MG TAB PO SCH (18:17)
[2019-05-16] MEDS: Docusate Calcium (SURFAK) 240 MG CAP PO SCH (20:32)
[2019-05-16] MEDS ORDERED: Sodium Chloride 0.9% 10 ML ONE (23:01)
[2019-05-17] MEDS: Ampicillin/Sulbactam 3 GM in Sodium Chloride 0.9% 100 ML IVPB SCH ×4 (02:30→20:21)
[2019-05-17] MEDS: Ibuprofen 800 MG TAB PO SCH ×3 (03:52→20:20)
[2019-05-17 06:50] LABS: Hemoglobin 5.6 g/dL (12.0-16.0); Mean Corpuscular HGB CONC 31.9 g/dL (32.0-36.0); Mean Corpuscular Volume 81.4 fL (78.0-98.0); Mean Platelet Volume 7.5 fL (7.4-10.4); Platelet Count 296 thou/uL (130-400); RBC Distribution Width 12.7 % (11.5-14.5); Red Blood Cell (RBC) Count 2.14 mill/uL (4.20-5.40)
[2019-05-17] MEDS ORDERED: Acetaminophen 325 MG TAB PO SCH (07:15)
[2019-05-17] MEDS ORDERED: diphenhydrAMINE 25 MG CAP PO SCH (07:15)
[2019-05-17] MEDS: Ferrous Sulfate 325 MG TAB PO SCH ×2 (08:40→17:45)
[2019-05-17] MEDS: Docusate Calcium (SURFAK) 240 MG CAP PO SCH ×2 (08:41→20:22)
[2019-05-17] MEDS: Prenatal Vitamin 1 TAB PO SCH (08:41)
[2019-05-17 08:44] LABS: Band 6 % (5-11); Eosinophils 1 % (0-10); Lymphocytes 13 % (21-51); MDiff Complete? YES; Monocytes 6 % (0-10); Neutrophil 74 % (42-75); Platelet Morphology Comment Appears Adequate; Polychromasia SLIGHT = 2-3 cells (100X) (0-2/hpf)
[2019-05-17] MEDS ORDERED: Sodium Chloride 0.9% 10 ML ONE ×2 (09:18→17:55)
[2019-05-18] MEDS: Ampicillin/Sulbactam 3 GM in Sodium Chloride 0.9% 100 ML IVPB SCH (02:12)
[2019-05-18] MEDS: Ibuprofen 800 MG TAB PO SCH ×2 (03:21→11:20)
[2019-05-18 07:38] LABS: Hemoglobin 7.9 g/dL (12.0-16.0); Mean Corpuscular HGB CONC 34.1 g/dL (32.0-36.0); Mean Corpuscular Hemoglobin 28.3 pg (27.0-31.0); Mean Corpuscular Volume 82.8 fL (78.0-98.0); Mean Platelet Volume 7.4 fL (7.4-10.4); Platelet Count 286 thou/uL (130-400); RBC Distribution Width 13.1 % (11.5-14.5); White Blood Cell (WBC) Count 15.4 thou/uL (4.8-10.8)
[2019-05-18 08:13] VITALS: TEMP 98.7
[2019-05-18] MEDS: Prenatal Vitamin 1 TAB PO SCH (08:41)
[2019-05-18] MEDS: Docusate Calcium (SURFAK) 240 MG CAP PO SCH (08:42)
[2019-05-18] MEDS: Ferrous Sulfate 325 MG TAB PO SCH ×2 (08:42→16:59)
[2019-05-18 12:02] VITALS: BP 111/63
== END 2019-05-18 17:35 | disposition home or self-care (01) | DRG 806 ==
LOC: L&D 18:03 → 3SW 05-16 17:36
PROVIDERS: ADMIT Obstetrics & Gynecology; ATTEND Obstetrics & Gynecology
PROC: 10D07Z6 Extraction of Products of Conception, Vacuum, Via Natural or Artificial Opening (ICD-10-PCS; principal; 2019-05-16)
PROC: 0KQM0ZZ Repair Perineum Muscle, Open Approach (ICD-10-PCS; 2019-05-16)
PROC: 3E0P7VZ Introduction of Hormone into Female Reproductive, Via Natural or Artificial Opening (ICD-10-PCS; 2019-05-16)
PROC: 10907ZC Drainage of Amniotic Fluid, Therapeutic from Products of Conception, Via Natural or Artificial Opening (ICD-10-PCS; 2019-05-16)
PROC: 30233N1 Transfusion of Nonautologous Red Blood Cells into Peripheral Vein, Percutaneous Approach (ICD-10-PCS; 2019-05-17)
DX: O99.824 Streptococcus B carrier state complicating childbirth (principal); O75.2 Pyrexia during labor, not elsewhere classified; Z37.0 Single live birth; O44.53 Low lying placenta with hemorrhage, third trimester; O72.1 Other immediate postpartum hemorrhage; O71.5 Other obstetric injury to pelvic organs; Z3A.40 40 weeks gestation of pregnancy
CPT/HCPCS: 36415; 36416; 36430; 51702; 85025; 85027; 86780; 86850; 86900; 86901; 87340; J0295; J0595; J0690; J2001; J2405; J2540; J2590; J3490; P9016; Q0163